=== PATIENT | male | born 1970 | race Caucasian/White ===

== ENCOUNTER 2022-02-21 06:10 | Emergency (ER) | payer BC, SELFPAY ==
[2022-02-21 06:28] VITALS: BP 122/83; PULSE 86; RESP 18; TEMP 36.4; O2SAT 97
--- NOTE | 2022-02-21 06:35 | ED_ITS ---
HPI - General Adult General Time Seen by Provider: 06:35 Date Seen: 02/21/22 Chief complaint: Unspecified Complaint, Adult Stated complaint: headache,weak Time Seen by Provider: 02/21/22 06:28 Source: patient and family Mode of arrival: ambulatory Limitations: no limitations History of Present Illness HPI narrative: Jonas is a 51-year-old male past medical history includes hypothyroidism, hearing impairment presents emergency department with spouse with headache and weakness. Patient states that he had his physical exam 4 weeks ago, was recently restarted on his levothyroxine, had been doing well at that time. He states about 2 weeks ago he developed a cold, hot and cold sweats, he was exposed to someone at work, he smokes a pack every 3 days, he had some congestion, mild cough, body aches, no real ear pain or sore throat, he is not vaccinated against COVID, no difficulty with breathing or chest pain, no abdominal pain, vomiting or diarrhea. He denies any urinary complaints. For the last 3 days he has developed a right-sided headache, it has been constant, he has been taking [id number] meds with no improvement, denies any sinus pressure or visual disturbance, does get some dizziness when he gets up which then resolves. Headache radiates to the back of his neck. Patient is not use to getting headaches like this in the past, it is not the worse headache of his life, it was not a thunderclap, it gradually got worse. Denies any weight loss. Patient does not have much for an appetite, he denies any loss of taste or smell. He has been hydrating. Due to the continual symptoms he presents emergency department. Related Data Home Medications Medication Instructions Recorded Confirmed levothyroxine 75 mcg tablet mcg 02/21/22 Allergies Allergy/AdvReac Type Severity Reaction Status Date / Time No Known Drug Allergies Allergy Verified 02/21/22 06:30 Review of Systems Status of ROS: Reports: 10 or more systems reviewed and unremarkable except as noted in History and below [facility] Medical History (Updated 02/21/22 @ 07:48 by Jono Billings MD) Erectile dysfunction Hypothyroidism Thrombocytopenia Surgical History (Updated 02/21/22 @ 06:57 by Ruslan Quinteros RN) History of knee surgery Social History Smoking Status: Current every day smoker What tobacco products do you use: cigarettes How often do you have a drink containing alcohol: never How often do you have six or more drinks on one occasion: Never AUDIT-C Alcohol total score: 0 Non-prescribed substance use: denies use Exam Narrative: Exam Narrative: General: Nontoxic in appearance, no obvious distress HEENT: Post Oropharyngeal erythema, no exudate, uvula midline. Pupils equal round and reactive to light, normal visual mcintosh, extraocular muscles intact, no injection or discharge Nontender to palpation the maxillary sinus, minimal tenderness to the frontal sinus Neck: Supple, full range of motion on extension and flexion, no meningeal signs, mild tenderness to palpation the paraspinal musculature, no midline tenderness. No cervical adenopathy Lungs: Diminished breath sounds throughout, no rales, rhonchi, stridor wheezing, no tachypnea Heart: Normal sinus rhythm, S1-S2 Muscle skeletal: +5 strength upper lower extremities Abdomen: Obese, bowel sounds present, nontender to palpation Neuro: Cranial nerves 2-12 grossly intact, GCS 15, gait within normal limits, alert awake and oriented x3 Const: Vital Signs, click to edit/add: Vital Signs - 24 hr 02/21/22 06:28 02/21/22 06:54 Temperature 97.6 F Pulse Rate [Left P ulse Oximeter] 86 Respiratory Rate 18 Respiratory Rate [ Head] 18 Blood Pressure [Le ft Upper Arm] 122/83 Pulse Oximetry 97 Oxygen Delivery Me thod Room Air Course Course Hospital Course: 6:35 AM: AIDET performed. Vitals are normal at this time, workup will include COVID/influenza/RSV nasopharyngeal swab, for his headache and body aches, IM Toradol 30 mg, will obtain CBC, CRP and BMP. May consider prescribing Augmentin 875/125 mg b.i.d. over the next 10 days, due to his headache and ongoing congestion and head cold. Offered a CT head without IV contrast due to his persistent headache, he declined at this time. Reevaluation(s) Reevaluation #1: Patient was updated on his lab results, nasopharyngeal swab was positive for Sars-Cov-2, CBC showed findings consistent with COVID diagnosis, platelets 99 but patient has a history of thrombocytopenia, metabolic panel was unremarkable, patient is feeling better after above care given, at this time no antibiotics to be prescribed, symptoms related to COVID, he is afebrile and has no respiratory symptoms, patient should not need any quarantine at this time since symptoms onset was 2 weeks ago. Patient not a candidate for antivirals. He should continue with Tylenol and/or Motrin every 4-6 hours as needed for headache, body aches and symptoms. To follow-up with primary care provider over the next 7-10 days. Return if worsening symptoms. Time: :22 Vital Signs Vital signs: Initial Vital Signs Temperature 97.6 F 02/21/22 06:28 Temperature Source Temporal Artery Scan 02/21/22 06:28 Pulse Rate 86 02/21/22 06:28 Respiratory Rate 18 02/21/22 06:28 Blood Pressure 122/83 02/21/22 06:28 Blood Pressure Mean 96 02/21/22 06:28 Blood Pressure Position Sitting 02/21/22 06:28 Pulse Oximetry 97 02/21/22 06:28 Oxygen Delivery Method 02/21/22 06:28 Vital Signs Temperature 97.6 F 02/21/22 06:28 Pulse Rate 86 02/21/22 06:28 Respiratory Rate 18 02/21/22 06:28 Blood Pressure 122/83 02/21/22 06:28 Pulse Oximetry 97 02/21/22 06:28 Oxygen Delivery Method 02/21/22 06:28 Temperature 97.6 F 02/21/22 06:28 Pulse Rate 86 02/21/22 06:28 Respiratory Rate 18 02/21/22 06:54 Blood Pressure 122/83 02/21/22 06:28 Pulse Oximetry 97 02/21/22 06:28 Oxygen Delivery Method 02/21/22 06:28 Medical Decision Making Lab Data Labs: Lab Results 02/21/22 02/21/22 02/21/22 Range/Units 06:34 07:00 07:00 WBC 2.48 L (4.50-11.00) K/uL RBC 5.34 (4.30-5.90) m/uL Hgb 16.5 (13.5-17.5) gm/dL Hct 48.3 (37.0-53.0) % MCV 90 (80-100) fL MCH 31 (26-34) pg MCHC 34 (32-36) gm/dL RDW Coeff of Tomas 14.0 (11.5-15.5) % Plt Count 99 L (140-440) K/uL Neut % (Auto) 44.4 (42.0-72.0) % Lymph % (Auto) 43.1 (20-44) % Irion % (Auto) 10.5 (0.0-11.0) % Eos % (Auto) 2.0 (0.0-7.0) % Baso % (Auto) 0.0 (0.0-3.0) % Neut # (Auto) 1.10 L (1.7-7.0) K/uL Lymph # (Auto) 1.10 (0.90-2.90) K/uL Irion # (Auto) 0.30 (0.00-0.90) K/UL Eos # (Auto) 0.00 (0.00-0.50) K/uL Baso # (Auto) 0.00 (0.00-0.30) K/uL Abs Immat Gran (auto) 0.00 (0.00-0.30) K/uL Imm/Tot Granulo (auto) 0.0 % Sodium (135-149) mmol/L Potassium (3.6-5.1) mmol/L Chloride (96-114) mmol/L Carbon Dioxide (20-32) mmol/L BUN (5-24) mg/dL Creatinine (0.5-1.5) mg/dL Estimated GFR ml/min Glucose (60-115) mg/dL Calcium (8.4-10.6) mg/dL Total Bilirubin (0.1-1.5) mg/dL AST (12-35) U/L ALT (4-50) U/L Alkaline Phosphatase (40-150) U/L C-Reactive Protein 1.5 H (0.5-1.0) mg/dL Total Protein (6.0-8.3) g/dL Albumin (3.3-5.0) g/dL SARS-CoV-2 (PCR) POSITIVE SARS-CoV-2 A (Negative) Influenza Type A (PCR) Negative PCR FLU A (Negative) Influenza Type B (PCR) Negative PCR FLU B (Negative) RSV (PCR) Negative PCR RSV (Negative) 02/21/22 Range/Units 07:00 WBC (4.50-11.00) K/uL RBC (4.30-5.90) m/uL Hgb (13.5-17.5) gm/dL Hct (37.0-53.0) % MCV (80-100) fL MCH (26-34) pg MCHC (32-36) gm/dL RDW Coeff of Tomas (11.5-15.5) % Plt Count (140-440) K/uL Neut % (Auto) (42.0-72.0) % Lymph % (Auto) (20-44) % Irion % (Auto) (0.0-11.0) % Eos % (Auto) (0.0-7.0) % Baso % (Auto) (0.0-3.0) % Neut # (Auto) (1.7-7.0) K/uL Lymph # (Auto) (0.90-2.90) K/uL Irion # (Auto) (0.00-0.90) K/UL Eos # (Auto) (0.00-0.50) K/uL Baso # (Auto) (0.00-0.30) K/uL Abs Immat Gran (auto) (0.00-0.30) K/uL Imm/Tot Granulo (auto) % Sodium 137 (135-149) mmol/L Potassium 3.6 (3.6-5.1) mmol/L Chloride 106 (96-114) mmol/L Carbon Dioxide 21 (20-32) mmol/L BUN 15 (5-24) mg/dL Creatinine 0.5 (0.5-1.5) mg/dL Estimated GFR 125 ml/min Glucose 199 H (60-115) mg/dL Calcium 8.6 (8.4-10.6) mg/dL Total Bilirubin 1.2 (0.1-1.5) mg/dL AST 85 H (12-35) U/L ALT 53 H (4-50) U/L Alkaline Phosphatase 86 (40-150) U/L C-Reactive Protein (0.5-1.0) mg/dL Total Protein 8.9 H (6.0-8.3) g/dL Albumin 4.5 (3.3-5.0) g/dL SARS-CoV-2 (PCR) (Negative) Influenza Type A (PCR) (Negative) Influenza Type B (PCR) (Negative) RSV (PCR) (Negative) Discharge Plan Discharge Clinical Impression: COVID-19, Headache, Elevated liver function tests Patient Disposition: Home, Self-Care Condition: Improved Instructions: COVID-19 (Coronavirus Disease 2019) (ED) Additional Instructions: To continue with Motrin and or Tylenol every 4-6 hours as needed for headache and symptoms. To follow up with primary care provider as needed in the next 7-10 days. Return if worsening symptoms. Prescriptions: No Action levothyroxine 75 mcg tablet Label Comments: TAKE 1 TABLET BY MOUTH DAILY. ON SUNDAYS AND WEDNESDAYS TAKE 2 TABLETS BY MOUTH DAILY. Follow Up/Referrals: Travon Nieves PA-C [Primary Care Provider] - Stand Alone Forms: [employer] Info Instructions
[2022-02-21 06:54] VITALS: RESP 18; O2SAT 97
[2022-02-21] MEDS: KETOROLAC 30 MG/ML inj IM (06:54)
[2022-02-21 07:08] LABS: Hematocrit 48.3 % (37.0-53.0); Hemoglobin* 16.5 gm/dL (13.5-17.5); Lymphocytes Percent Auto 43.1 % (20-44); Mean Corpuscular HGB Conc 34 gm/dL (32-36); Mean Corpuscular Hemoglobin 31 pg (26-34); Mean Corpuscular Volume 90 fL (80-100); Monocytes Percent Auto 10.5 % (0.0-11.0); Neutrophils Percent Auto 44.4 % (42.0-72.0); Platelet Count* 99 K/uL (140-440); Red Blood Count 5.34 m/uL (4.30-5.90); White Blood Count* 2.48 K/uL (4.50-11.00)
[2022-02-21 07:14] LABS: PCR FLU A Negative PCR FLU A (Negative); PCR FLU B Negative PCR FLU B (Negative); PCR RSV Negative PCR RSV (Negative)
[2022-02-21 07:15] LABS: SARS PCR* POSITIVE SARS-CoV-2 (Negative)
[2022-02-21 07:16] LABS: Slide Review Reflex No
[2022-02-21 07:23] LABS: Albumin* 4.5 g/dL (3.3-5.0); Chloride* 106 mmol/L (96-114)
[2022-02-21 07:24] LABS: Potassium* 3.6 mmol/L (3.6-5.1); Sodium* 137 mmol/L (135-149)
[2022-02-21 07:26] LABS: Alkaline Phosphatase* 86 U/L (40-150); Aspartate Amino Transferase* 85 U/L (12-35); Bilirubin Total* 1.2 mg/dL (0.1-1.5); Carbon Dioxide* 21 mmol/L (20-32); Creatinine* 0.5 mg/dL (0.5-1.5); Estimated Glomerular Filt Rate 125 ml/min; Total Protein* 8.9 g/dL (6.0-8.3)
[2022-02-21 07:27] LABS: Alanine Aminotransferase* 53 U/L (4-50); Blood Urea Nitrogen* 15 mg/dL (5-24); Calcium* 8.6 mg/dL (8.4-10.6); Glucose* 199 mg/dL (60-115)
[2022-02-21 07:31] LABS: C Reactive Protein* 1.5 mg/dL (0.5-1.0)
--- NOTE | 2022-02-21 07:44 | ED.NURSE ---
Dr. Billings in room
--- NOTE | 2022-02-21 07:55 | ED.NURSE ---
Pt given discharge instructions and verbalizes understanding of discharge instructions. No further questions asked. Given note for work-excused 02/20-02/21. Given instructions to follow up as needed.
== END 2022-02-21 07:57 | disposition home or self-care (01) ==
PROVIDERS: Emergency Provider Student in an Organized Health Care Education/Training Program; PCP Physician Assistant Medical
DX: R51.9 Headache, unspecified (principal); U07.1 COVID-19
CPT/HCPCS: 36415; 80053; 85025; 86140; 87502; 87634; 87635; 96372; 99283; 99284; J1885